=== PATIENT | male | born 1940 | race Two or more races ===

== ENCOUNTER 2023-11-07 11:53 | Emergency (ER) | payer MEDICARE, OTHER, SELFPAY ==
[2023-11-07 12:01] VITALS: BP 169/102
[2023-11-07 12:35] VITALS: BP 157/86
[2023-11-07 12:49] LABS: % Basophils 0.9 % (0-2); % Eosinophils 1.6 % (0-6); % Immature Granulocytes 0.5 % (0-0.5); % Lymphocytes 18.6 % (20.5-51.1); % Monocytes 8.2 % (1.7-9.3); % Neutrophils 70.2 % (42.2-75.2); Absolute Basophils 0.1 10^3/uL (0-0.2); Absolute Eosinophils 0.1 10^3/uL (0-0.7); Absolute Monocytes 0.5 10^3/uL (0.1-0.6); Absolute Neutrophils 3.8 10^3/uL (1.4-6.5); Hematocrit 41.8 % (39.0-52.0); Hemoglobin 14.3 g/dL (13.0-18.0); Mean Corp Hgb Conc. 34.2 g/dL (33.0-37.0); Mean Corpuscular Hgb 30.2 pg (27.0-31.0); Mean Corpuscular Volume 88.4 fL (80.0-94.0); Mean Platelet Volume 9.3 fL (7.4-10.4); Nucleated Red Blood Cells % 0 % (-); Platelet Count 299 10^3/uL (130-400); Red Blood Cell Count 4.73 10^6/uL (4.70-6.10); Red Cell Dist. Width 13.3 % (11.5-14.5); White Blood Cell Count 5.5 10^3/uL (4.8-10.8)
[2023-11-07 13:00] VITALS: BP 158/78
[2023-11-07 13:00] LABS: ALT (SGPT) 34 U/L (0-50); AST (SGOT) 35 U/L (17-59); Albumin 4.8 g/dl (3.5-5.0); Alkaline Phosphatase 118 U/L (38-126); Blood Urea Nitrogen 15 mg/dl (9-20); Calcium 10.1 mg/dl (8.4-10.2); Carbon Dioxide 27 mmol/L (22-30); Chloride 105 mmol/L (98-107); Glucose 134 mg/dl (70-99); Potassium 4.1 mmol/L (3.5-5.1); Sodium 140 mmol/L (135-145); Total Bilirubin 1.1 mg/dl (0.2-1.3); Total Protein 7.4 g/dl (6.3-8.2); eGFR > 60.00
[2023-11-07 13:12] LABS: Troponin I < 0.012 ng/ml
[2023-11-07 13:47] VITALS: BMI 27.1
[2023-11-07 14:00] VITALS: BP 150/81
[2023-11-07 14:07] LABS: D-Dimer 0.39 ug/mlFEU (0.00-0.50)
[2023-11-07 15:00] VITALS: BP 155/85
--- NOTE | 2023-11-07 15:16 | ED.GENMED ---
History of Present Illness
General
Chief Complaint: Chest Pain
Source: patient
Exam Limitations: none
Time Seen by Provider: 11/07/23 12:54
History of Present Illness
History of Present Illness:
83-year-old male started with anterior chest pain at 7 AM. Continual throughout the morning. No pleuritic pain no shortness of breath no nausea or diaphoresis.
Past History
Past History
ED Past Medical History: CVA, HTN, Hypercholesterolemia and Other (Ulcerative colitis, GI bleed, anemia)
ED Past Surgical History: Orthopedic and Other
Social History
Tobacco: Non-smoker
Review of Systems
Review of Systems
All Other Systems: Not applicable
Respiratory: Reports no symptoms
ABD/GI: Reports no symptoms
Phy Exam
Physical Exam
Physical Exam:
GENERAL: Alert and oriented in no apparent distress
EYE: Orbits normal.
NECK: Supple
CARDIAC: Regular rate and rhythm without any obvious murmurs.
LUNGS: Clear breath sounds,normal
ABDOMEN: Soft, without focal tenderness or distention
NEUROLOGICAL: Alert and oriented , grossly non-focal
SKIN: Warm and dry, no rash or lesion, no discoloration, skin intact.
MUSCULOSKELETAL: No edema,no deformity.Good color
PSYCH: Normal and appropriate interaction.
Scores
Heart Score for Chest Pain Patients
STEMI patient?: No
History: Slightly or Non-Suspicious
ECG: Normal
Age: >/= 65 years
Risk Factors: >/= 3 Risk Factors or History of CAD
Troponin: </= Normal Limit
Heart Score for Chest Pain Patients: 4
Heart Score Risk: 20.3% MACE over next 6 weeks
Course
Orders/Labs/Results
Orders:
Orders
11/07/23 11:55
Electrocardiogram (*1) Urgent
Reason for Study: Chest Pain
EKG- Treatment ONCE
11/07/23 12:28
Complete Blood Count/With Diff Urgent
Comprehensive Metabolic Panel Urgent
Troponin I Urgent
11/07/23 13:44
D-Dimer Urgent
11/07/23 15:16
Electrocardiogram (*1) Stat
Reason for Study: Other
Other Reason for Exam: chest pain
EKG- Treatment ONCE
11/07/23 15:30
Troponin I Urgent
11/07/23 16:11
CXR2 [CR Chest - 2 Views ] Urgent
Comment:
Reason For Exam: cp
Abnormal Lab Results
11/07/23
12:28
Absolute Lymphs (auto) 1.0 L 10^3/uL
(1.2-3.4)
Lymphocytes % 18.6 L %
(20.5-51.1)
Glucose 134 H mg/dl
(70-99)
11/07/23 12:28
11/07/23 12:28
Vital Signs
Initial and Last Documented VS:
Initial Vital Signs
Temp Pulse Resp BP Pulse Ox
98.2 F 103 20 169/102 97
11/07/23 12:01 11/07/23 12:01 11/07/23 12:01 11/07/23 12:01 11/07/23 12:01
Last Documented Vital Signs
Temp Pulse Resp BP Pulse Ox
98.2 F 83 23 155/85 100
11/07/23 12:01 11/07/23 15:45 11/07/23 15:45 11/07/23 15:00 11/07/23 15:45
MDM/Problems Addressed
MDM/Problems Addressed:
83-year-old male ongoing anterior chest pain since this morning. Continuous. No pleuritic pain no shortness of breath no other complaints. Initial cardiac testing stable. Will be do repeat troponin and EKG. Discussed with patient's son.
Offered to contact our cardiology for close follow-up. 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
*Radiology
Radiology exam reviewed: radiology read reviewed (neg)
*Pulse Oximetry
Patient hypoxic: no
*EKG
Interpreted by ED Provider?: Yes
Comparison EKG: no changes
Heart Rate: 91
Rate: normal
Rhythm: sinus
[place]: left axis deviation
Interval: normal interval
QRS Pattern: left vent hypertrophy
Ischemia: non-specific ST changes
*[employer] Interpretation
Rate: normal
Interpretation: normal
Heart Rate: 84
Rhythm: sinus
*Critical Care Note
Total Time (30-74mins, 75-104mins- exclusive of procedures): Not Applicable
Data Reviewed
Review of Other/Old Records Reveals: Records and Testing
Update Note
Update Note:
Patient is remained stable and nontoxic. Repeat EKG normal sinus rhythm at 79. Left anterior fascicular block no acute changes. Repeat troponin negative. Patient stable for discharge to follow-up
ED Attending Note
-
Portions of this chart may have been created with voice recognition software.� Occasional wrong word or��sound alike� substitutions may have occurred due to the inherent limitations of voice recognition software.
Discharge Plan
Departure
Patient Disposition: Home (Routine Discharge)
Date of Disposition: 11/07/23
Time of Disposition: 16:38
Patient with high blood pressure during this ER visit?: Yes
Discharge Problem:
Anterior chest pain
Instructions: Chest pain, BLOOD PRESSURE
Prescriptions:
No Action
amlodipine 5 mg Tablet
5 mg PO DAILY
esomeprazole magnesium [Nexium] 40 mg Capsule,Delayed Release(Dr/Ec)
40 mg PO DAILY
losartan 50 mg Tablet
50 mg PO DAILY
acetaminophen 500 mg Tablet
1,000 mg PO BID
cholecalciferol (vitamin D3) [Vitamin D3] 125 mcg (5,000 unit) Tablet
125 mcg PO DAILY
mesalamine 400 mg Capsule (With Del Rel Tablets)
1,200 mg PO BID
Rx Instructions:
11/27/22-patient buys from [place]
atorvastatin 40 mg Tablet
40 mg PO QPM Qty: 30 0RF
clopidogrel 75 mg tablet
75 mg PO DAILY
cyanocobalamin (vitamin B-12) [Vitamin B-12] 1,000 mcg/mL Solution
1,000 mcg IM QMONTH
Referrals:
John Rahman MD [Family Provider] -
Activity Restrictions/Additional Instructions:
Follow-up with your business machine operator in 2 days as discussed.
Return sooner with increased or persistent chest pain shortness of breath or any other concerning symptoms
Interventions
Interventions:
*Risk Screen - Suicide Last Done: 11/07/23 12:01
*General Assessment Last Done: 11/07/23 12:01
*Neglect/Abuse Screening Last Done: 11/07/23 12:01
ED- Fall Risk Assessment Last Done: 11/07/23 17:12
*ED COVID-19 Vaccine History Last Done: 11/07/23 17:12
*Nursing Disposition Last Done: 11/07/23 17:12
ED- Cardiac Assessment Last Done: 11/07/23 13:00
Discharge Date and Time
Discharge Date/Time: 11/07/23 17:13
Print Language: GREENLAND[place]
[2023-11-07 16:02] LABS: Troponin I < 0.012 ng/ml
== END 2023-11-07 17:13 | disposition home or self-care (01) ==
LOC: EMR 11:53
PROVIDERS: EMERGENCY PHYSICIAN Emergency Medicine; FAMILY PHYSICIAN Family Medicine
DX: R07.89 Other chest pain (principal); I10 Essential (primary) hypertension; E78.00 Pure hypercholesterolemia, unspecified; K51.90 Ulcerative colitis, unspecified, without complications; I25.10 Atherosclerotic heart disease of native coronary artery without angina pectoris; Z86.73 Personal history of transient ischemic attack (TIA), and cerebral infarction without residual deficits
CPT/HCPCS: 99283; 71046; 80053; 84484; 85025; 85379; 93005